=== PATIENT | female | born 1940 | race African-American/Black ===

== ENCOUNTER 2018-01-25 18:32 | Emergency (ER) | payer OTHER ==
[2018-01-25] MEDS ORDERED: NA CHLORIDE 0.9% 500 ML ONE ×2 (20:07→22:20)
[2018-01-25 20:11] LABS: Absolute Lymphocytes (CBC) 0.6 K/uL (0.7-4.9); Absolute Monocytes 0.3 K/uL (0.1-1.3); Absolute Neutrophil 4.4 K/uL (1.8-8.0); Basophils % 1.4 % (0-1.3); Eosinophils % 3.1 % (0-4.4); Hematocrit 33.4 % (36.0-45.0); Lymphocytes % 10.1 % (15.3-44.8); MCH 28.1 pg (27.0-35.0); MCV 84.6 fL (80-100); MPV 10.2 fL (7.6-11.3); Monocytes % 5.5 % (3.3-12.3); RBC Red Blood Cell Count 3.95 M/uL (3.86-4.86)
[2018-01-25 20:24] LABS: Potassium 3.2 mEq/L (3.6-5.0)
[2018-01-25 20:30] LABS: Albumin 3.1 g/dL (3.2-5.5); Bilirubin Direct 0.3 mg/dL (0-0.2); Bilirubin Total 0.9 mg/dL (0.3-1.2); Protein, Total 7.4 g/dL (6.0-8.3)
[2018-01-25 22:09] LABS: Urine Bacteria 20-50 /HPF (<20); Urine Coarse Granular Casts 0-5 /LPF (NONE SEEN); Urine Culture Reflex Order REFLEXED; Urine RBC 20-50 /HPF (NONE SEEN)
[2018-01-25 22:15] LABS: Urine Blood 3+ (NEG); Urine Glucose NEGATIVE (NEG); Urine Protein 2+ (NEG); Urine Specific Gravity 1.015 (1.005-1.030); Urine pH 5.5 (5.0-7.0)
--- NOTE | 2018-01-25 23:23 | ER ---
Nurse's Notes [facility] Name: Елена Tobin Age: 77 yrs Sex: Female : 1940 Arrival Date: 01/25/2018 Time: 18:38 Bed 5 Private MD: None, None Diagnosis: Dehydration Presentation: 01/25 18:48 Presenting complaint: Patient states: Dark tea colored urine for 3 days after stomach aj virus this weekend. Transition of care: patient was not received from another setting of care. Onset of symptoms was January 23, 2018. Risk Assessment: Do you want to hurt yourself or someone else? Patient reports no desire to harm self or others. Care prior to arrival: None. 18:48 Method Of Arrival: Wheelchair aj 18:48 Acuity: BRIGIDA 3 aj 19:46 Initial Sepsis Screen: Does the patient meet any 2 criteria? No. Patient's initial ea sepsis screen is negative. Does the patient have a suspected source of infection? Yes: No. Patient's initial sepsis screen is negative. Triage Assessment: 18:50 General: Appears in no apparent distress. comfortable, Behavior is calm, cooperative, aj appropriate for age. Pain: Denies pain. Neuro: Level of Consciousness is awake, alert, obeys commands, Oriented to person, place, time, situation, Appropriate for age. Respiratory: Airway is patent Respiratory effort is even, unlabored, Respiratory pattern is regular, symmetrical. : Reports decreased urinary output with tea colored urine. Derm: Skin is intact, is healthy with good turgor, Skin is pink, warm \T\ dry. normal. Historical: - Allergies: 18:50 NSAIDS; aj 18:50 amlodipine; aj - PMHx: 18:50 Hypertension; Arthritis; aj - PSHx: 18:50 Knee surgery; aj - Immunization history:: Adult Immunizations up to date. - Social history:: Smoking status: Patient/guardian denies using tobacco. - Ebola Screening: : Patient negative for fever greater than or equal to 101.5 degrees Fahrenheit, and additional compatible Ebola Virus Disease symptoms Patient denies exposure to infectious person Patient denies travel to an Ebola-affected area in the 21 days before illness onset No symptoms or risks identified at this time. Screenin:45 Abuse screen: Denies threats or abuse. Nutritional screening: No deficits noted. ea Tuberculosis screening: No symptoms or risk factors identified. Fall Risk None identified. Assessment: 19:42 General: Appears uncomfortable, Behavior is calm, cooperative, appropriate for age. ea Pain: Complains of pain in abdomen Pain currently is 7 out of 10 on a pain scale. Quality of pain is described as aching. Neuro: Level of Consciousness is awake, alert, obeys commands, Oriented to person, place, time, situation. Cardiovascular: Heart tones S1 S2 present Patient's skin is warm and dry. Respiratory: Airway is patent Respiratory effort is even, unlabored, Respiratory pattern is regular, symmetrical, Breath sounds are clear bilaterally. GI: Reports pt states her abdomen feels achy. : Reports tea colored urine. EENT: No signs and/or symptoms were reported regarding the EENT system. Derm: Skin is dry, Skin is normal, Skin temperature is warm. 20:38 Reassessment: Patient and/or family updated on plan of care and expected duration. Pain ea level reassessed. Patient is alert, oriented x 3, equal unlabored respirations, skin warm/dry/pink. Pending on urine from pt. 21:49 Reassessment: Patient and/or family updated on plan of care and expected duration. Pain ea level reassessed. Patient is alert, oriented x 3, equal unlabored respirations, skin warm/dry/pink. at bedside. 22:39 Reassessment: Patient and/or family updated on plan of care and expected duration. Pain ea level reassessed. Patient is alert, oriented x 3, equal unlabored respirations, skin warm/dry/pink. family remains at bedside. Patient states feeling better. 23:34 Reassessment: Patient and/or family updated on plan of care and expected duration. Pain ea level reassessed. Patient is alert, oriented x 3, equal unlabored respirations, skin warm/dry/pink. Discharge instructions given to patient, verbalized the understanding of instructions. Patient denies pain at this time. Patient states feeling better. Patient states symptoms have improved. Vital Signs: 18:50 BP 136 / 67; Pulse 84; Resp 18; Temp 97.9; Pulse Ox 98% on R/A; Weight 99.79 kg; Height aj 5 ft. 5 in. (165.10 cm); 19:44 BP 140 / 76; Pulse 69; Resp 18; Pulse Ox 100% on R/A; Pain 7/10; ea 20:39 BP 141 / 83; Pulse 70; Resp 18; Pulse Ox 98% ; ea 21:30 BP 157 / 86; Pulse 70; Resp 18; Pulse Ox 99% on R/A; Pain 0/10; ea 22:30 BP 149 / 81; Pulse 63; Resp 18 S; Pulse Ox 98% on R/A; Pain 0/10; ea 23:36 BP 140 / 78; Pulse 70; Resp 18; Temp 97.8; Pulse Ox 99% on R/A; Pain 0/10; ea 18:50 Body Mass Index 36.61 (99.79 kg, 165.10 cm) aj ED Course: 18:38 Patient arrived in ED. sb2 18:38 None, None is Private Physician. sb2 18:49 Triage completed. aj 18:50 Arm band placed on left wrist. Patient placed in waiting room, Patient notified of wait aj time. 19:22 Emy Weems RN is Primary Nurse. ea 19:39 Johny Arellano NP is PHCP. pm1 19:39 Bryan Gutierrez MD is Attending Physician. pm1 19:46 Patient has correct armband on for positive identification. Bed in low position. Call ea light in reach. Side rails up X2. 20:00 Inserted saline lock: 22 gauge in right forearm, using aseptic technique. Blood ea collected. 23:35 No provider procedures requiring assistance completed. IV discontinued, intact, ea bleeding controlled, No redness/swelling at site. Pressure dressing applied. Administered Medications: 20:10 Drug: NS 0.9% 500 ml Route: IV; Rate: bolus; Site: right forearm; ea 21:00 Follow up: Response: No adverse reaction; IV Status: Completed infusion; IV Intake: ea 500ml 21:56 CANCELLED (Physician Discretion): NS 0.9% 1000 ml IV at 1000 ml once pm1 22:20 Drug: NS 0.9% 500 ml Route: IV; Rate: bolus; Site: right forearm; ea 23:00 Follow up: Response: No adverse reaction; IV Status: Completed infusion; IV Intake: ea 500ml 23:25 Drug: Potassium Chloride 20 mEq Route: PO; ea 23:37 Follow up: Response: Medication administered at discharge. ea Intake: 21:00 IV: 500ml; Total: 500ml. ea 23:00 IV: 500ml; Total: 1000ml. ea Outcome: 23:23 Discharge ordered by . pm1 23:35 Discharged to home via wheelchair, with family. ea 23:35 Condition: improved 23:35 Discharge instructions given to patient, Instructed on discharge instructions, follow up and referral plans. 23:35 Demonstrated understanding of instructions, follow-up care. 23:38 Patient left the ED. ea Addendum: 01/30/2018 18:48 Addendum: Culture Results: Positive urine culture. Patient was not prescribed i w antibiotics at discharge. Report given to ROXANA for further evaluation and then to webbing tacker for follow up with patient. Phone call Attempt #1 pt did not answer phone, left voice mail. Signatures: Nora Conroy RN Keyla Andrews RN RN iw Marinas, Patrick, NP TITLE I MATH TUTOR pm1 Emy Weems RN RN ea Billeau, Sheri sb2
--- NOTE | 2018-01-25 23:23 | EDPHYS ---
Physician Documentation [facility] Name: Елена Tobin Age: 77 yrs Sex: Female : 1940 Arrival Date: 01/25/2018 Time: 18:38 Bed 5 Private MD: None, None ED Physician Bryan Gutierrez HPI: 01/25 20:00 This 77 yrs old Black Female presents to ER via Wheelchair with complaints of STOMACH pm1 VIRUS, DARK URINE. 20:00 The patient presents with dark urine. Onset: The symptoms/episode began/occurred today. pm1 Modifying factors: The symptoms are alleviated by nothing, the symptoms are aggravated by nothing. Associated signs and symptoms: Pertinent negatives: diarrhea, nausea, urinary frequency, vomiting, Pain with urination. Abdominal pain. Flank pain. patient with diarrhea for 2 days. approximately 5 episodes each day. No diarrhea today. Patient reports concentrated urine today after getting over a stomach virus the previous day. Historical: - Allergies: 18:50 NSAIDS; aj 18:50 amlodipine; aj - PMHx: 18:50 Hypertension; Arthritis; aj - PSHx: 18:50 Knee surgery; aj - Immunization history:: Adult Immunizations up to date. - Social history:: Smoking status: Patient/guardian denies using tobacco. - Ebola Screening: : Patient negative for fever greater than or equal to 101.5 degrees Fahrenheit, and additional compatible Ebola Virus Disease symptoms Patient denies exposure to infectious person Patient denies travel to an Ebola-affected area in the 21 days before illness onset No symptoms or risks identified at this time. ROS: 20:00 Positive for concentrated urine, Negative for urinary frequency, flank pain, burning pm1 with urination, difficulty urinating. 20:00 Constitutional: Negative for fever, chills, and weight loss, Eyes: Negative for injury, pain, redness, and discharge, ENT: Negative for injury, pain, and discharge, Neck: Negative for injury, pain, and swelling, Cardiovascular: Negative for chest pain, palpitations, and edema, Respiratory: Negative for shortness of breath, cough, wheezing, and pleuritic chest pain, Abdomen/GI: Negative for abdominal pain, nausea, vomiting, diarrhea, and constipation, Back: Negative for injury and pain, MS/Extremity: Negative for injury and deformity, Skin: Negative for injury, rash, and discoloration, Neuro: Negative for headache, weakness, numbness, tingling, and seizure. Exam: 20:00 Constitutional: This is a well developed, well nourished patient who is awake, alert, pm1 and in no acute distress. Head/Face: Normocephalic, atraumatic. Eyes: Pupils equal round and reactive to light, extra-ocular motions intact. Lids and lashes normal. Conjunctiva and sclera are non-icteric and not injected. Cornea within normal limits. Periorbital areas with no swelling, redness, or edema. Neck: Trachea midline, no thyromegaly or masses palpated, and no cervical lymphadenopathy. Supple, full range of motion without nuchal rigidity, or vertebral point tenderness. No Meningismus. Chest/axilla: Normal chest wall appearance and motion. Nontender with no deformity. No lesions are appreciated. Cardiovascular: Regular rate and rhythm with a normal S1 and S2. No gallops, murmurs, or rubs. Normal PMI, no JVD. No pulse deficits. Respiratory: Lungs have equal breath sounds bilaterally, clear to auscultation and percussion. No rales, rhonchi or wheezes noted. No increased work of breathing, no retractions or nasal flaring. 20:00 Back: No spinal tenderness. No costovertebral tenderness. Full range of motion. Skin: Warm, dry with normal turgor. Normal color with no rashes, no lesions, and no evidence of cellulitis. MS/ Extremity: Pulses equal, no cyanosis. Neurovascular intact. Full, normal range of motion. 20:00 Abdomen/GI: Inspection: abdomen appears normal, Bowel sounds: normal, Palpation: abdomen is soft and non-tender, in all quadrants. 20:00 Neuro: Orientation: is normal, Motor: is normal, moves all fours, strength is normal. Vital Signs: 18:50 BP 136 / 67; Pulse 84; Resp 18; Temp 97.9; Pulse Ox 98% on R/A; Weight 99.79 kg; Height aj 5 ft. 5 in. (165.10 cm); 19:44 BP 140 / 76; Pulse 69; Resp 18; Pulse Ox 100% on R/A; Pain 7/10; ea 20:39 BP 141 / 83; Pulse 70; Resp 18; Pulse Ox 98% ; ea 21:30 BP 157 / 86; Pulse 70; Resp 18; Pulse Ox 99% on R/A; Pain 0/10; ea 22:30 BP 149 / 81; Pulse 63; Resp 18 S; Pulse Ox 98% on R/A; Pain 0/10; ea 23:36 BP 140 / 78; Pulse 70; Resp 18; Temp 97.8; Pulse Ox 99% on R/A; Pain 0/10; ea 18:50 Body Mass Index 36.61 (99.79 kg, 165.10 cm) aj MDM: 19:45 Patient medically screened. pm1 23:20 ED course: Patient feels better after IV fluids and wants to go home.. pm1 23:22 Data reviewed: vital signs. Data interpreted: Pulse oximetry: on room air is 98 %. pm1 Interpretation: normal. 23:22 Counseling: I had a detailed discussion with the patient and/or guardian regarding: the pm1 historical points, exam findings, and any diagnostic results supporting the discharge/admit diagnosis, lab results, the need for outpatient follow up, to return to the emergency department if symptoms worsen or persist or if there are any questions or concerns that arise at home. 23:24 ED course: Patient without any pain with urination or frequency. No flank or abdominal pm1 pain. Urine microscopy with squamous epithelial cells. 01/25 19:45 Order name: Creatinine for Radiology; Complete Time: 21:55 pm1 01/25 19:45 Order name: Basic Metabolic Panel; Complete Time: 21:55 pm1 01/25 19:45 Order name: CBC with Diff; Complete Time: 21:55 pm1 01/25 19:45 Order name: Hepatic Function; Complete Time: 21:55 pm1 01/25 19:45 Order name: Lipase; Complete Time: 21:55 pm1 01/25 19:45 Order name: Urine Microscopic Only; Complete Time: 22:11 pm1 01/25 19:45 Order name: IV Saline Lock; Complete Time: 20:09 pm01/25 19:45 Order name: Labs collected and sent; Complete Time: 20:09 pm01/25 21:45 Order name: Urine Dipstick--Ancillary (enter results); Complete Time: 23:18 rg2 01/25 22:11 Order name: Urine Culture [facility] 01/25 19:45 Order name: Urine Dipstick-Ancillary (obtain specimen); Complete Time: 21:38 pm1 Administered Medications: 20:10 Drug: NS 0.9% 500 ml Route: IV; Rate: bolus; Site: right forearm; ea 21:00 Follow up: Response: No adverse reaction; IV Status: Completed infusion; IV Intake: ea 500ml 21:56 CANCELLED (Physician Discretion): NS 0.9% 1000 ml IV at 1000 ml once pm1 22:20 Drug: NS 0.9% 500 ml Route: IV; Rate: bolus; Site: right forearm; ea 23:00 Follow up: Response: No adverse reaction; IV Status: Completed infusion; IV Intake: ea 500ml 23:25 Drug: Potassium Chloride 20 mEq Route: PO; ea 23:37 Follow up: Response: Medication administered at discharge. ea Disposition: 01/25/18 23:23 Discharged to Home. Impression: Dehydration. - Condition is Stable. - Discharge Instructions: Dehydration, Elderly, Rehydration, Elderly. - Medication Reconciliation Form, Thank You Letter, Antibiotic Education form. - Follow up: Emergency Department; When: As needed; Reason: Worsening of condition. Follow up: Private Physician; When: 2 - 3 days; Reason: Recheck today's complaints, Continuance of care, Re-evaluation by your physician. - Problem is new. - Symptoms have improved. Addendum: 01/27/2018 12:07 Co-signature as Attending Physician, Bryan Gutierrez MD. g s Signatures: Dispatcher [employer] EDMS Nora Conroy RN RN aj Marinas, Patrick, CLINICAL APPLICATIONS SPECIALIST CLINICAL APPLICATIONS SPECIALIST pm1 Emy Weems RN RN ea Starr, Gregory, MD MD gs Corrections: (The following items were deleted from the chart) 01/25 21:56 21:56 NS 0.9% 1000 ml IV at 1000 ml once ordered. pm1 pm1 23:38 23:23 01/25/2018 23:23 Discharged to Home. Impression: Dehydration. Condition is ea Stable. Forms are Medication Reconciliation Form, Thank You Letter, Antibiotic Education, Prescription Opioid Use. Follow up: Emergency Department; When: As needed; Reason: Worsening of condition. Follow up: Private Physician; When: 2 - 3 days; Reason: Recheck today's complaints, Continuance of care, Re-evaluation by your physician. Problem is new. Symptoms have improved. pm1
[2018-01-25] MEDS ORDERED: POTASSIUM CL SA 10 MEQ TAB PO ONE (23:24)
[2018-01-25 23:54] VITALS: BP 140/78; TEMP 97.8; O2SAT 99
== END 2018-01-25 23:38 | disposition home or self-care (01) ==
LOC: ER 18:32
DX: E86.0 Dehydration (principal); I10 Essential (primary) hypertension; M19.90 Unspecified osteoarthritis, unspecified site
CPT/HCPCS: 36415; 80048; 80076; 81003; 81015; 83690; 85025; 87077; 87086; 87088; 87186; 96360; 99284

== ENCOUNTER 2019-09-14 17:48 | Emergency (ER) | payer MEDICARE ==
--- OUTSIDE RECORDS SUMMARY | 2019-09-14 17:50 | XMS REPORT | Summary of Care ---
:1940 Author Organization [facility] - Health Address [address] [place] [address] Care Team Providers Name Role Phone Montse Trivedi MD Primary Care Provider Encounter Details Date Type Department Care Team Description 04/25/2019 Orders Only [facility] Doctor Unassigned, No [address] [facility] [place] [address] [address] [place] [address] Allergies Active Allergy Reactions Severity Noted Date Comments Lisinopril Swelling 09/08/2018 Nsaids (Non-Steroidal Anti-Inflammatory Anaphylaxis High 10/21/2016 Drug) documented as of this encounter (statuses as of 04/25/2019) Medications Medication Sig Dispensed Refills Start Date End Date Status vitamin B-12 1,000 mcg Take 1 tablet 0 11/30/2018 Active tabletIndications: B12 by mouth daily. deficiency metoprolol succinate XL Take 1 tablet 90 tablet 1 02/03/2019 Active 25 mg 24 hr by mouth daily. tabletIndications: Essential hypertension apixaban (ELIQUIS) 2.5 Take 1 tablet 180 tablet 1 02/13/2019 Active mg tabletIndications: by mouth 2 Chronic anticoagulation (two) times daily. hydrALAZINE 50 mg Take 1 tablet 60 tablet 5 04/14/2019 Active tabletIndications: by mouth 2 Uncontrolled (two) times hypertension daily. documented as of this encounter (statuses as of 04/25/2019) Active Problems Problem Noted Date Leukopenia 11/30/2018 Acute on chronic renal insufficiency 11/30/2018 CKD (chronic kidney disease), stage III 11/30/2018 B12 deficiency 11/30/2018 Bilateral chronic knee pain 11/07/2018 Chronic anemia 11/07/2018 Osteoarthritis, knee 2018 Chronic anticoagulation 2018 Osteoporosis 2018 Obesity (BMI 30-39.9) 10/21/2016 History of pulmonary embolism 10/20/2016 Hypertension documented as of this encounter (statuses as of 04/25/2019) Social History Tobacco Use Types Packs/Day Years Used Date Never Smoker Smokeless Tobacco: Never Used Alcohol Use Drinks/Week oz/Week Comments No Sex Assigned at Date Recorded Not on file Job Start Date Occupation Industry Not on file Not on file Not on file Travel History Travel Start Travel End No recent travel history available. documented as of this encounter Last Filed Vital Signs Not on filedocumented in this encounter Plan of Treatment Date Type Specialty Care Team Description 04/25/2019 Appointment Vascular Sonography Akila Prabhakar MD [address] [place] [id number] [phone] [facility] 04/25/2019 Appointment Vascular Sonography Akila Prabhakar MD [address] [place] [address] [phone] [employer] 05/11/2019 Office Visit Family Medicine Montse Trivedi MD [address] [place] [id number] [phone] Health Maintenance Due Date Last Done Comments DTaP,Tdap,and Td Vaccines (1 - Tdap) 1960 Zoster Recombinant Vaccine (SHINGRIX) (1 of 2) 1991 Medicare Wellness Visit 2006 Osteoporosis Screening 2006 PNEUMOCOCCAL VACCINES 65+ (1 of 2 - PCV13) 2006 INFLUENZA VACCINE (#1) 2019 documented as of this encounter Procedures Procedure Name Priority Date/Time Associated Diagnosis Comments NO SHOW OR MISSED Routine 04/25/2019 1:05 PM APPOINTMENT POLICY CDT ACKNOWLEDGEMENT documented in this encounter Results Not on filedocumented in this encounter Insurance Payer Benefit Plan / Subscriber ID Effective Phone Address Type Group Dates [place] [employer] MEDICARE [id number] 2018-Prese Medicare Adv HEALTHCARE - COMPLETE nt [facility] MED[facility] documented as of this encounter
--- OUTSIDE RECORDS SUMMARY | 2019-09-14 17:50 | XMS REPORT ---
:1940 Author Organization [facility] Address [address] [place] [address] Dr. Hayes [address] [place] [id number] Care Team Providers Name Role Phone Unavailable Unavailable Unavailable Problems This patient has no known problems. Allergies, Adverse Reactions, Alerts This patient has no known allergies or adverse reactions. Medications This patient has no known medications.
--- OUTSIDE RECORDS SUMMARY | 2019-09-14 17:50 | XMS REPORT | Summary of Care ---
:1940 Author Organization [facility] Address [address] [place] [address] Care Team Providers Name Role Phone Montse Trivedi MD Primary Care Provider Reason for Referral (TIFFANIE) Status Reason Specialty Diagnoses / Referred By Referred To Procedures Contact Contact Pending Review Vascular Diagnoses Bilateral leg edema Decreased pedal pulses Shikha Sonography Procedures BILATERAL DUPLEX SCAN OF ARTERY BY VASCULAR LAB Montse Cornejo MD [address] [place] [address] [place] [address] (TIFFANIE) Status Reason Specialty Diagnoses / Referred By Referred To Procedures Contact Contact Pending Review Vascular Diagnoses Bilateral leg edema Decreased pedal pulses Rubin Trivedi, Sonography Procedures BILATERAL VENOUS DUPLEX LOWER EXTREMITY BY VASCULAR LAB MD Glendy Mariscal MD [address] [place] [phone] Phone: Fax: Reason for Visit Reason Comments Hypertension SWELLING feet swelling Encounter Details Date Type Department Care Team Description 04/14/2019 Office Visit [facility] Family Montse Trivedi Uncontrolled hypertension (Primary Dx); Medicine - Ari Cornejo MD Bilateral leg edema; [address] [place] [address] [address] [place] [address] Decreased [place] [phone] Allergies Active Allergy Reactions Severity Noted Date Comments Lisinopril Swelling 09/08/2018 Nsaids (Non-Steroidal Anti-Inflammatory Anaphylaxis High 10/21/2016 Drug) documented as of this encounter (statuses as of 04/24/2019) Medications Medication Sig Dispensed Refills Start Date End Date Status vitamin B-12 1,000 Take 1 0 11/30/2018 Active mcg tablet by tabletIndications: mouth daily. B12 deficiency metoprolol succinate Take 1 90 tablet 1 02/03/2019 Active XL 25 mg 24 hr tablet by tabletIndications: mouth daily. Essential hypertension apixaban (ELIQUIS) Take 1 180 tablet 1 02/13/2019 Active 2.5 mg tablet by tabletIndications: mouth 2 Chronic (two) times anticoagulation daily. hydrALAZINE 50 mg Take 1 60 tablet 5 04/14/2019 Active tabletIndications: tablet by Uncontrolled mouth 2 hypertension (two) times daily. felodipine 10 mg 24 Take 1 90 tablet 1 02/03/2019 Discontinued hr tabletIndications: tablet by 9 Essential mouth daily. hypertension DOSE INCREASE. documented as of this encounter (statuses as of 04/24/2019) Active Problems Problem Noted Date Leukopenia 11/30/2018 Acute on chronic renal insufficiency 11/30/2018 CKD (chronic kidney disease), stage III 11/30/2018 B12 deficiency 11/30/2018 Bilateral chronic knee pain 11/07/2018 Chronic anemia 11/07/2018 Osteoarthritis, knee 2018 Chronic anticoagulation 2018 Osteoporosis 2018 Obesity (BMI 30-39.9) 10/21/2016 History of pulmonary embolism 10/20/2016 Hypertension documented as of this encounter (statuses as of 04/24/2019) Social History Tobacco Use Types Packs/Day Years Used Date Never Smoker Smokeless Tobacco: Never Used Alcohol Use Drinks/Week oz/Week Comments No Sex Assigned at Date Recorded Not on file Job Start Date Occupation Industry Not on file Not on file Not on file Travel History Travel Start Travel End No recent travel history available. documented as of this encounter Last Filed Vital Signs Vital Sign Reading Time Taken Comments Blood Pressure 196/104 04/14/2019 2:21 PM CDT Pulse 73 04/14/2019 2:21 PM CDT Temperature 36.4 C (97.6 F) 04/14/2019 1:42 PM CDT Respiratory Rate - - Oxygen Saturation - - Inhaled Oxygen Concentration - - Weight 99.8 kg (220 lb) 04/14/2019 1:42 PM CDT Height 165.1 cm (5' 5") 04/14/2019 1:42 PM CDT Body Mass Index 36.61 04/14/2019 1:42 PM CDT documented in this encounter Patient Instructions Patient InstructionsMontse Trivedi MD - 04/14/2019 1:30 PM CDT Leg Swelling in Both Legs Swelling of the feet, ankles, and legs is called edema. It is caused by excess fluid that has collected in the tissues. Extra fluid in the body settles in the lowest part because of gravity. This is why the legs and feet are most affected. Some of the causes for edema include: Disease of the heart like congestive heart failure Standing or sitting for long periods of time Infection of the feet or legs Blood pooling in the veins of your legs (venous insufficiency) Dilated veins in your lower leg (varicose veins) Garters or other clothing that is tight on your legs. This will cause blood to pool in your legs because the clothing limits blood flow. Some medicines such as hormones like control pills, some blood pressure medicines like calcium channel blockers (amlodipine) and steroids, some antidepressants like MAO inhibitors and tricyclics Menstrual periods that cause you to retain fluids Many types of renal disease Liver failureor cirrhosis , some swelling is normal, but a sudden increase in leg swelling or weight gain can be asign of a dangerous complication of Poor nutrition Thyroid disease Medical treatment will depend on what is causing the swelling in your legs. Your healthcare providermay prescribe water pills (diuretics) to get rid of the extra fluid. Home care Follow these guidelines when caring for yourself at home: Don't wear clothing like garters that is tight on your legs. Keep your legs up while lying or sitting. If infection, injury, or recent surgery is causing the swelling, stay off your legs as much as possible until symptoms get better. If your healthcare provider says that your leg swelling is caused by venous insufficiency or varicose veins, don't sit or blind stitch machine operator one place for long periods of time. Take breaks and walk about every few hours. Brisk walking is a good exercise. It helps circulate the blood that has collected in your leg. Talk with your provider about using support stockings to stop daytime leg swelling. If your provider says that heart disease is causing your leg swelling, follow a low-salt diet to stop extra fluid from staying in your body. You may also need medicine. Follow-up care Follow up with your healthcare provider, or as advised. When to seek medical advice Call your healthcare provider right away if any of these occur: New shortness of breath or chest pain Shortness of breath or chest pain that gets worse Swelling in both legs or ankles that gets worse Swelling of the abdomen Redness, warmth, or swelling in one leg Fever of 100.4F (38C) or higher, or as directed by your healthcare provider Yellow color to your skin or eyes Rapid, unexplained weight gain Having to sleep upright or use an increased number of pillows Date Last Reviewed: 11/21/201519990372-8506 [employer]. [address] [place] [address]. All rights reserved. This information is not intended as a substitute for professional medical care. Always follow your healthcare professional's instructions. documented in this encounter Progress Notes Montse Trivedi MD - 04/14/2019 1:30 PM CDT Cc: Chief Complaint Patient presents with Hypertension SWELLING feet swelling HPI Елена Tobin is a 78 year old female who presents today for HTN follow-up. She also is c/o swelling of her feet/legs. HTN follow-up: Medication compliance: Stopped taking her felodipine due to it causing her to have BLE edema. Her edema has improved since she stopped the felodipine but it hasn't resolved. Dietary compliance: Good. Exercise frequency: None due to chronic b/l knee pain/arthritis. Blood pressure readings: Doesn't self-monitor. Associated symptoms: BLE edema. Denies cp or SOB. Cardiovascular screening (ex. EKG, stress test) in the past 3 years?: Yes, 2016. Allergies Елена is allergic to nsaids (non-steroidal anti-inflammatory drug) and lisinopril. Medications Outpatient Medications Prior to Visit Medication Sig Dispense Refill apixaban (ELIQUIS) 2.5 mg tablet Take 1 tablet by mouth 2 (two) times daily. 180 tablet 1 metoprolol succinate XL 25 mg 24 hr tablet Take 1 tablet by mouth daily. 90 tablet 1 felodipine 10 mg 24 hr tablet Take 1 tablet by mouth daily. DOSE INCREASE. 90 tablet 1 vitamin B-12 1,000 mcg tablet Take 1 tablet by mouth daily. No facility-administered medications prior to visit. Histories Past Medical History: Diagnosis Date B12 deficiency 11/30/2018 Chronic anemia 11/07/2018 Chronic anticoagulation 2018 CKD (chronic kidney disease), stage III 11/30/2018 History of DVT (deep vein thrombosis) 2018 History of pulmonary embolism 2017 History of urinary tract infection Hypertension Leukopenia 11/30/2018 Osteoarthritis, knee 2018 Osteoporosis 2018 Past Surgical History: Procedure Laterality Date COLONOSCOPY N/A 10/26/2016 Surgeon: Juan A Cochran MD; Location: [facility] Location ESOPHAGOGASTRODUODENOSCOPY N/A 10/23/2016 Surgeon: Javon Lofton MD; Location: [facility] Location INFERIOR VENA CAVA FILTER PLACEMENT TOTAL KNEE ARTHROPLASTY Right Social History Socioeconomic History Marital status: Spouse name: Not on file Number of children: Not on file Years of education: Not on file Highest education level: Not on file Occupational History Not on file Social Needs Financial resource strain: Not on file Food insecurity: Worry: Not on file Inability: Not on file Transportation needs: Medical: Not on file Non-medical: Not on file Tobacco Use Smoking status: Never Smoker Smokeless tobacco: Never Used Substance and Sexual Activity Alcohol use: No Drug use: No Sexual activity: Not on file Lifestyle Physical activity: Days per week: Not on file Minutes per session: Not on file Stress: Not on file Relationships Social connections: Talks on phone: Not on file Gets together: Not on file Attends alevism service: Not on file Active member of club or organization: Not on file Attends meetings of clubs or organizations: Not on file Relationship status: Not on file Intimate partner violence: Fear of current or ex partner: Not on file Emotionally abused: Not on file Physically abused: Not on file Forced sexual activity: Not on file Other Topics Concern Not on file Social History Narrative Single. Retired. Family History Problem Relation Age of Onset Stroke Mother Hypertension Mother Review of Systems Constitutional: Negative. HENT: Negative. Eyes: Negative. Respiratory: Negative. Cardiovascular: Positive for leg swelling. Gastrointestinal: Negative. Genitourinary: Negative. Musculoskeletal: Positive for arthralgias and gait problem. Skin: Negative. Psychiatric/Behavioral: Negative. Endocrine: Endocrine negative Vital Signs BP (!) 196/104 (BP Location: Left arm, Patient Position: Sitting, BP CUFF SIZE: Adult Large) | Pulse 73 | Temp 36.4 C (97.6 F) (Tympanic) | Ht 5' 5" ( 1.651 m) | Wt 220 lb (99.8 kg) | BMI 36.61kg/m Physical Exam Constitutional: She is oriented to person, place, and time. She appears well- developed and well-nourished. No distress. HENT: Head: Normocephalic. Mouth/Throat: Mucous membranes are normal. Eyes: Pupils are equal, round, and reactive to light. Conjunctivae and EOM are normal. No scleral icterus. Neck: Neck supple. No JVD present. No thyromegaly present. Cardiovascular: Normal rate, regular rhythm, normal heart sounds and intact distal pulses. Exam reveals no gallop and no friction rub. No murmur heard. Pulses: Dorsalis pedis pulses are 1+ on the right side, and 1+ on the left side. Posterior tibial pulses are 1+ on the right side, and 1+ on the left side. Pulmonary/Chest: Effort normal and breath sounds normal. She has no wheezes. She has no rales. Musculoskeletal: She exhibits edema (1+ R ankle, Trace L ankle). Lymphadenopathy: She has no cervical adenopathy. Neurological: She is alert and oriented to person, place, and time. She has normal reflexes. Skin: Skin is warm and dry. No rash noted. No pallor. Psychiatric: She has a normal mood and affect. Her behavior is normal. Nursing note and vitals reviewed. Assessment/Plan Елена was seen today for hypertension and swelling. Diagnoses and all orders for this visit: Uncontrolled hypertension The patient's blood pressure is uncontrolled. Continue metoprolol. She can't tolerate felodipine due to edema so I recommended hydralazine instead. The potential side effects of the medication were reviewed with the patient who voiced understanding. The low sodium DASH diet was reviewed with the patient and patient education materials were provided in printed form. The patient was counseled to exercise regularly with a goal of 150 mins per week. The patient was instructed to self monitor her blood pressure once daily varying the times when it is checked and to bring the record of readings to each office visit. The patient should follow-up sooner if the blood pressure is trending >/=150/ 90. Baseline EKG is UTD. Close follow-up recommended. - hydrALAZINE 50 mg tablet; Take 1 tablet by mouth 2 (two) times daily. Bilateral leg edema, Decreased pedal pulses Recommended vascular testing as noted. - BILATERAL VENOUS DUPLEX LOWER EXTREMITY BY VASCULAR LAB; Future - BILATERAL DUPLEX SCAN OF ARTERY BY VASCULAR LAB; Future Plan of care, desired health behaviors, goals, Ddx, and any prescribed medications were discussed with the patient. This visit did not involve counseling and coordination that comprised more than 50% of the visit time. Education resources and self-management tools were provided and reviewed with the AVS. Patient/guardian/family verbalized understanding and agrees to the plan of care. Barriers tocare: None. Ability to manage care: Good. Advanced care planning (living will) information was not given/offered to the patient to review for discussion at a future visit. If applicable, the [facility] database was accessed to review any controlled substance prescription claims data. If the patient is taking prescribed medications, the [employer] prescription claims data in [employer] was reviewed to assess patient compliance with the medication treatment plan. Follow-up: Return in about 1 month (around 05/15/2019) for hypertension and swelling follow-up. Follow-up sooner if any problems or concerns. Scribe Attestation Fidelia Ramos , am scribing for, and in the presence of, Montse Trivedi MD who performed the services described here-in. Fidelia Escalona, April 14, 2019, 2:06 PM Physician Attestation Montse Ramos MD, personally performed the services described in this documentation , as scribed by, Fidelia Escalona in my presence and it is both accurate and complete. Montse Trivedi MD April 14, 2019, 2:06 PM documented in this encounter Plan of Treatment Date Type Specialty Care Team Description 04/25/2019 Appointment Vascular Sonography Akila Prabhakar MD [address] [facility] [address] [place], [place] [phone] Omid Mazariegos Cardio Vascular 04/25/2019 Appointment Vascular Sonography Omid Mazariegos Cardio Vascular 05/11/2019 Office Visit Family Medicine Montse Trivedi MD [address] [place] [address] [place] [phone] Health Maintenance Due Date Last Done Comments DTaP,Tdap,and Td Vaccines (1 - Tdap) 1960 Zoster Recombinant Vaccine (SHINGRIX) (1 of 2) 1991 Medicare Wellness Visit 2006 Osteoporosis Screening 2006 PNEUMOCOCCAL VACCINES 65+ (1 of 2 - PCV13) 2006 INFLUENZA VACCINE (#1) 2019 documented as of this encounter Results Not on filedocumented in this encounter Visit Diagnoses Diagnosis Uncontrolled hypertension - Primary Unspecified essential hypertension Bilateral leg edema Edema Decreased pedal pulses Other symptoms involving cardiovascular system documented in this encounter Insurance Payer Benefit Plan / Subscriber ID Effective Phone Address Type Group Dates [employer] AARP MEDICARE [id number] 2018-Prese Medicare Adv HEALTHCARE - COMPLETE nt O MANAGED MEDICARE documented as of this encounter
--- OUTSIDE RECORDS SUMMARY | 2019-09-14 17:50 | XMS REPORT | Summary of Care ---
:1940 Author Organization [facility] Address [address] [place] [address] Care Team Providers Name Role Phone Montse Trivedi MD Primary Care Provider Reason for Referral (TIFFANIE) Status Reason Specialty Diagnoses / Referred By Referred To Procedures Contact Contact Pending Review Vascular Diagnoses Bilateral leg edema Decreased pedal pulses Shikha Sonography Procedures BILATERAL DUPLEX SCAN OF ARTERY BY VASCULAR LAB Montse Cornejo MD [address] [place] [address] [place] [address] (TIFFANIE) Status Reason Specialty Diagnoses / Referred By Referred To Procedures Contact Contact Pending Review Vascular Diagnoses Bilateral leg edema Decreased pedal pulses Rubin Trivedi, Sonography Procedures BILATERAL VENOUS DUPLEX LOWER EXTREMITY BY VASCULAR LAB MD Glendy Mariscal MD [address] [place] [phone] Phone: Fax: Reason for Visit Reason Comments Hypertension SWELLING feet swelling Encounter Details Date Type Department Care Team Description 04/14/2019 Office Visit [facility] Family Montse Trivedi Uncontrolled hypertension (Primary Dx); Medicine - Ari Cornejo MD Bilateral leg edema; [address] [place] [address] [place] [address] [place] [phone] Allergies Active Allergy Reactions [...] insufficiency or varicose veins, don't sit or clinic scheduler one place for long periods of time. [...] increased number of pillows Date Last Reviewed: 11/21/201519999563-1628 [employer] [address] [place] [address]. All rights reserved. This information is not [...] file Gets together: Not on file Attends cheondoism service: Not on file Active member of [...] at a future visit. If applicable, the [facility] database was accessed to review any controlled substance prescription claims data. If the patient is taking prescribed medications, the [employer] prescription claims data in [employer] was reviewed to assess patient compliance with [...] Appointment Vascular Sonography Akila Prabhakar MD [address] [facility] [address] [place], [place] [phone] Omid Mazariegos Cardio Vascular 04/25/2019 Appointment Vascular Sonography Omid Mazariegos Cardio Vascular 05/11/2019 Office Visit Family Medicine Montse Trivedi MD [address] [place] [address] [place] [phone] Health Maintenance Due Date Last Done [...] Address Type Group Dates [employer] MEDICARE [id number] 2018-Prese Medicare Adv HEALTHCARE - COMPLETE nt O MANAGED MEDICARE documented as of this encounter
--- OUTSIDE RECORDS SUMMARY | 2019-09-14 17:51 | XMS REPORT | Summary of Care ---
:1940 Author Organization [facility] Address [address] [place] [address] Care Team Providers Name Role Phone Montse Trivedi MD Primary Care Provider Reason for Referral (TIFFANIE) Status Reason Specialty Diagnoses / Referred By Referred To Procedures Contact Contact Closed Vascular Sonography Diagnoses Bilateral leg edema Decreased pedal pulses Rubin Trivedi Jennifer, Procedures BILATERAL VENOUS DUPLEX LOWER EXTREMITY BY VASCULAR LAB Montse Cornejo MD MD [address] [place] [phone] Phone: Fax: (TIFFANIE) Status Reason Specialty Diagnoses / Referred By Referred To Procedures Contact Contact Closed Vascular Sonography Diagnoses Bilateral leg edema Decreased pedal pulses Rubin Trivedi Jennifer, Procedures BILATERAL VENOUS DUPLEX LOWER EXTREMITY BY VASCULAR LAB Montse Cornejo MD MD [address] [place] [phone] Phone: Fax: (TIFFANIE) Status Reason Specialty Diagnoses / Referred By Referred To Procedures Contact Contact Closed Vascular Sonography Diagnoses Bilateral leg edema Decreased pedal pulses Montse Trivedi Procedures BILATERAL DUPLEX SCAN OF ARTERY BY VASCULAR LAB MD Clemente [address] [place] [phone] (TIFFANIE) Status Reason Specialty Diagnoses / Referred By Referred To Procedures Contact Contact Closed Vascular Sonography Diagnoses Bilateral leg edema Decreased pedal pulses Montse Trivedi Procedures BILATERAL DUPLEX SCAN OF ARTERY BY VASCULAR LAB MD [place] [address] [place] [address] [place] [phone] Reason for Visit Reason Comments Edema (TIFFANIE) Status Reason Specialty Diagnoses / Referred By Referred To Procedures Contact Contact Closed Vascular Sonography Diagnoses Bilateral leg edema Decreased pedal pulses Rubin Trivedi Jennifer, Procedures BILATERAL VENOUS DUPLEX LOWER EXTREMITY BY VASCULAR LAB Montse Cornejo MD MD [address] [place] [address] [place] [phone] Phone: Fax: Encounter Details Date Type Department Care Team Description 04/25/2019 Hospital Encounter [facility] Akila Prabhakar MD [address] [facility] [address] [place] [address] [facility] Cardio Vascular [address] [place] [phone] Allergies Active Allergy Reactions Severity Noted Date Comments Lisinopril Swelling 09/08/2018 Nsaids (Non-Steroidal Anti-Inflammatory Anaphylaxis High 10/21/2016 Drug) documented as of this encounter (statuses as of 04/26/2019) Medications Medication Sig Dispensed Refills Start Date [...] as of this encounter (statuses as of 04/26/2019) Active Problems Problem Noted Date Leukopenia 11/30/2018 Acute on chronic renal insufficiency 11/30/2018 CKD (chronic kidney disease), stage III 11/30/2018 B12 deficiency 11/30/2018 Bilateral chronic knee pain 11/07/2018 Chronic anemia 11/07/2018 Osteoarthritis, knee 2018 Chronic anticoagulation 2018 Osteoporosis 2018 Obesity (BMI 30-39.9) 10/21/2016 History of pulmonary embolism 10/20/2016 Hypertension documented as of this encounter (statuses as of 04/26/2019) Social History Tobacco Use Types Packs/Day Years [...] Treatment Date Type Specialty Care Team Description 05/11/2019 Office Visit Family Medicine Montse Trivedi MD [address] [place] [address] [place] [phone] Health Maintenance Due Date Last Done Comments DTaP,Tdap,and Td Vaccines (1 - Tdap) 1960 Zoster Recombinant Vaccine (SHINGRIX) (1 of 2) 1991 Medicare Wellness Visit 2006 Osteoporosis Screening 2006 PNEUMOCOCCAL VACCINES 65+ (1 of 2 - PCV13) 2006 INFLUENZA VACCINE (#1) 2019 documented as of this encounter Procedures Procedure Name Priority Date/Time Associated Diagnosis Comments BILATERAL VENOUS TIFFANIE 04/25/2019 2:37 PM Bilateral leg edema DUPLEX LOWER EXTREMITY CDT Decreased pedal pulses BY VASCULAR LAB BILATERAL DUPLEX SCAN TIFFANIE 04/25/2019 1:45 PM Bilateral leg edema OF ARTERY BY VASCULAR CDT Decreased pedal pulses LAB documented in this encounter Results Not on filedocumented in this encounter Visit Diagnoses Diagnosis Bilateral leg edema Edema Decreased pedal pulses Other symptoms involving cardiovascular system documented in this encounter Insurance Payer Benefit Plan / Subscriber ID Effective Phone Address Type Group Dates [employer] MEDICARE [id number] 2018-Prese Medicare Adv HEALTHCARE - COMPLETE nt O MANAGED MEDICARE documented as of this encounter
--- OUTSIDE RECORDS SUMMARY | 2019-09-14 17:51 | XMS REPORT | Summary of Care ---
:1940 Author Organization [facility] Address [address] [place] [id number] Care Team Providers Name Role Phone Montse Trivedi MD Primary Care Provider Reason for Visit Reason Comments Edema (TIFFAINE) Status Reason Specialty Diagnoses / Referred By Referred To Procedures Contact Contact Closed Vascular Sonography Diagnoses Bilateral leg edema Decreased pedal pulses Montse Trivedi Procedures BILATERAL DUPLEX SCAN OF ARTERY BY VASCULAR LAB MD Clemente [address] [place] [address] [facility] [place] [address] Encounter Details Date Type Department Care Team Description 04/25/2019 Hospital Encounter [facility] Akila Prabhakar MD [address] [facility] [address] [place] [address] [facility], [facility] Cardio Vascular [address] [facility] [place] [address] Allergies Active Allergy Reactions Severity Noted [...] Office Visit Family Medicine Montse Trivedi MD [address] [place] [address] [place] [phone] Health Maintenance Due Date Last Done Comments DTaP,Tdap,and Td Vaccines (1 - Tdap) 1960 Zoster Recombinant Vaccine (SHINGRIX) (1 of 2) 1991 Medicare Wellness Visit 2006 Osteoporosis Screening 2006 PNEUMOCOCCAL VACCINES 65+ (1 of 2 - PCV13) 2006 INFLUENZA VACCINE (#1) 2019 documented as of this encounter Results Not on filedocumented in this encounter Visit Diagnoses Diagnosis Absent pedal pulses Other symptoms involving cardiovascular system documented in this encounter Insurance Payer Benefit Plan / Subscriber ID Effective Phone Address Type Group Dates [employer] MEDICARE [id number] 2018-Prese Medicare Adv HEALTHCARE - COMPLETE nt HMO MANAGED MEDICARE documented as of this encounter
--- OUTSIDE RECORDS SUMMARY | 2019-09-14 17:51 | XMS REPORT | Summary of Care ---
:1940 Author Organization [facility] Address [address] [place] [address] Care Team Providers Name Role Phone Montse Trivedi MD Primary Care Provider Reason for Referral (Routine) Status Reason Specialty Diagnoses / Referred By Referred To Procedures Contact Contact New Request Vascular Surgery Diagnoses PAD (peripheral artery disease) Chronic deep vein thrombosis (DVT) of right popliteal vein Bilateral leg edema Decreased pedal pulses Shikha, Procedures CONSULT/REFERRAL VASCULAR SURGERY Montse Cornejo MD [address] [place] [address] [place] [address] Reason for Visit Reason Comments Referral/consult Encounter Details Date Type Department Care Team Description 04/26/2019 Telephone [facility] Family Montse Trivedi, Referral/ consult Medicine - Ari LAW [facility] [place] [address] [place] [address] [place], [place] [phone] Allergies Active Allergy Reactions Severity Noted [...] of 04/26/2019) Active Problems Problem Noted Date PAD (peripheral artery disease) 04/26/2019 Chronic deep vein thrombosis (DVT) of right popliteal vein 04/26/2019 Leukopenia 11/30/2018 Acute on chronic renal insufficiency [...] Office Visit Family Medicine Montse Trivedi MD [address] [place] [address] [place] [address] Health Maintenance Due Date Last Done Comments DTaP,Tdap,and Td Vaccines (1 - Tdap) 1960 Zoster Recombinant Vaccine (SHINGRIX) (1 of 2) 1991 Medicare Wellness Visit 2006 Osteoporosis Screening 2006 PNEUMOCOCCAL VACCINES 65+ (1 of 2 - PCV13) 2006 INFLUENZA VACCINE (#1) 2019 documented as of this encounter Results Not on filedocumented in this encounter Visit Diagnoses Diagnosis PAD (peripheral artery disease) - Primary Unspecified disorders of arteries and arterioles Chronic deep vein thrombosis (DVT) of right popliteal vein Bilateral leg edema Edema Decreased pedal pulses Other symptoms involving cardiovascular system documented in this encounter Insurance Payer Benefit Plan / Subscriber ID Effective Phone Address Type Group Dates [employer] MEDICARE [id number] 2018-Prese Medicare Adv HEALTHCARE - COMPLETE nt HMO MANAGED MEDICARE documented as of this encounter
[2019-09-14] MEDS ORDERED: TRAMADOL HCL 50 MG TAB ONE (18:56)
--- NOTE | 2019-09-14 19:31 | RAD REPORT ---
EXAM DESCRIPTION: US - Extrem Venous W Compress Quinten - 09/14/2019 7:24 pm CLINICAL HISTORY: PAIN Bilateral leg edema and swelling. COMPARISON: Extrem Venous W Compress Quinten dated 02/15/2017 TECHNIQUE: Real-time sonographic interrogation of the left and right lower extremity deep venous sys tems was performed. FINDINGS: Normal compressibility, flow augmentation, phasic flow and spontaneous flow is identified in both the left and right lower extremity deep venous systems. Small left-sided Liriano's cyst. IMPRESSION: No sonographic evidence of left or right lower extremity deep venous thrombosis.
[2019-09-14 19:52] LABS: Absolute Lymphocytes (CBC) 1.2 K/uL (0.7-4.9); Basophils % 0.7 % (0-1.3); Hematocrit 38.6 % (36.0-45.0); MPV 9.7 fL (7.6-11.3); RBC Red Blood Cell Count 4.44 M/uL (3.86-4.86)
--- NOTE | 2019-09-14 20:24 | EDPHYS ---
Physician Documentation [facility] Name: Елена Tobin Age: 78 yrs Sex: Female : 1940 Arrival Date: 09/14/2019 Time: 17:52 Bed 17 Private MD: ED Physician Regis Dior HPI: 09/14 18:55 This 78 yrs old Black Female presents to ER via Wheelchair with complaints of Leg Pain. cp 18:55 The patient presents with pain. The complaints affect the left leg, right leg. Onset: cp The symptoms/episode began/occurred 2 month(s) ago. Associated signs and symptoms: Pertinent negatives numbness, weakness. Patient reports having pain in both legs since restarting Amlodipine blood pressure medication 2 months ago. Patient reports pain feels like "spasms" and is worse at night when trying to sleep. Patient stopped Amlodipine medication 4 days ago. Historical: - Allergies: 18:14 amlodipine; iw 18:14 NSAIDS; iw - PMHx: 18:14 Arthritis; Hypertension; iw - PSHx: 18:14 Knee surgery; iw - Immunization history:: Adult Immunizations up to date. - Social history:: Smoking status: . - Ebola Screening: : Patient negative for fever greater than or equal to 101.5 degrees Fahrenheit, and additional compatible Ebola Virus Disease symptoms Patient denies exposure to infectious person Patient denies travel to an Ebola-affected area in the 21 days before illness onset No symptoms or risks identified at this time. ROS: 19:00 Constitutional: Negative for body aches, chills, fever, poor PO intake. cp 19:00 Eyes: Negative for injury, pain, redness, and discharge. cp 19:00 ENT: Negative for ear pain, sore throat. 19:00 Neck: Negative for pain with movement, pain at rest, stiffness. 19:00 Cardiovascular: Negative for chest pain, edema, palpitations. 19:00 Respiratory: Negative for cough, shortness of breath, wheezing. 19:00 Abdomen/GI: Negative for abdominal pain, nausea, vomiting, and diarrhea. 19:00 Back: Negative for pain at rest, pain with movement, radiated pain. 19:00 : Negative for urinary symptoms. 19:00 Skin: Negative for rash. 19:00 Neuro: Negative for altered mental status, headache, weakness. 19:00 All other systems are negative. Exam: 19:05 Constitutional: The patient appears in no acute distress, alert, awake, cp non-diaphoretic, non-toxic, well developed, well nourished. 19:05 Head/Face: Normocephalic, atraumatic. cp 19:05 Eyes: Periorbital structures: appear normal, Conjunctiva: normal, no exudate, no injection, Sclera: no appreciated abnormality, Lids and lashes: appear normal, bilaterally. 19:05 ENT: External ear(s): are unremarkable, Nose: is normal, Mouth: is normal, Posterior pharynx: is normal, airway is patent. 19:05 Chest/axilla: Inspection: normal, Palpation: is normal, no crepitus, no tenderness. 19:05 Cardiovascular: Rate: normal, Rhythm: regular. 19:05 Respiratory: the patient does not display signs of respiratory distress, Respirations: normal, no use of accessory muscles, labored breathing, is not present, Breath sounds: are clear throughout, no decreased breath sounds. 19:05 Abdomen/GI: Exam negative for discomfort, distension, guarding, Inspection: abdomen appears normal. 19:05 Back: pain, is absent, ROM is normal. 19:05 Musculoskeletal/extremity: Extremities: grossly normal except: noted in the left leg: pain, tenderness, noted in the right leg: pain, tenderness, ROM: full active range of motion, in the right leg and left leg, Pulses: noted to be 2+ in the right dorsalis pedis artery and left dorsalis pedis artery, Sensation intact. 19:05 Skin: cellulitis, is not appreciated, no rash present. Vital Signs: 18:15 BP 158 / 103; Pulse 86; Resp 16; Temp 98.2; Pulse Ox 98% on R/A; Weight 99.79 kg; iw Height 5 ft. 5 in. (165.10 cm); Pain 0/10; 19:30 BP 156 / 106; Pulse 82; Resp 18; Pulse Ox 100% ; wh 20:38 BP 146 / 98; Pulse 79; Resp 18; Pulse Ox 100% on R/A; wh 18:15 Body Mass Index 36.61 (99.79 kg, 165.10 cm) iw MDM: 18:21 Patient medically screened. cp 19:00 Differential diagnosis: DVT, cellulitis, muscle spasm, medication reaction. 20:23 Data reviewed: vital signs, nurses notes, lab test result(s), radiologic studies, cp ultrasound, and as a result, I will discharge patient. 20:24 Response to treatment: the patient's symptoms have markedly improved after treatment, and as a result, I will discharge patient. 20:24 Counseling: I had a detailed discussion with the patient and/or guardian regarding: the cp historical points, exam findings, and any diagnostic results supporting the discharge/admit diagnosis, lab results, radiology results, the need for outpatient follow up, a family practitioner, to return to the emergency department if symptoms worsen or persist or if there are any questions or concerns that arise at home. 09/14 18:44 Order name: CBC with Diff; Complete Time: 19:55 09/14 19:55 Interpretation: Normal except: WBC 3.1; NEUT A 1.4. 09/14 18:44 Order name: BMP; Complete Time: 20:20 09/14 20:20 Interpretation: Normal except: BUN 30; CRE 1.76; GFR 34. 09/14 18:44 Order name: US Extremity Venous W Compression Quinten; Complete Time: 19:35 09/14 19:55 Interpretation: Report reviewed. Administered Medications: 18:55 Drug: traMADol 50 mg Route: PO; bp 20:29 Follow up: Response: No adverse reaction; Pain is decreased; RASS: Alert and Calm (0) Disposition: 09/14/19 20:24 Discharged to Home. Impression: Pain in left leg, Pain in right leg. - Condition is Stable. - Discharge Instructions: Musculoskeletal Pain. - Prescriptions for Tramadol 50 mg Oral Tablet - take 1 tablet by ORAL route every 8 hours as needed; 12 tablet. - Medication Reconciliation Form, Thank You Letter, Antibiotic Education, Prescription Opioid Use form. - Follow up: Private Physician; When: 1 - 2 days; Reason: Recheck today's complaints. - Problem is an ongoing problem. - Symptoms have improved. Addendum: 09/16/2019 19:47 Co-signature as Attending Physician, Regis Dior MD. r n Signatures: Dispatcher [employer] Keyla Islas RN RN Regis Dior MD MD rn Page, Corey, PA PA Ajay Randall wh Danna, Dean, RN RN bp Corrections: (The following items were deleted from the chart) 09/14 19:55 19:55 Normal except: WBC 3.1. cp cp 20:38 20:24 09/14/2019 20:24 Discharged to Home. Impression: Pain in left leg; Pain in right wh leg. Condition is Stable. Forms are Medication Reconciliation Form, Thank You Letter, Antibiotic Education, Prescription Opioid Use. Follow up: Private Physician; When: 1 - 2 days; Reason: Recheck today's complaints. Problem is an ongoing problem. Symptoms have improved. cp
--- NOTE | 2019-09-14 20:24 | ER ---
Nurse's Notes [facility] Name: Елена Tobin Age: 78 yrs Sex: Female : 1940 Arrival Date: 09/14/2019 Time: 17:52 Bed 17 Private MD: Diagnosis: Pain in left leg;Pain in right leg Presentation: 09/14 18:12 Presenting complaint: Patient states: BP has been running high, can't take her iw amlodipine because it's giving her legs spasms , was told by Dr. Bhatti to come to ER if her pain continued , stopped taking her BP medicine four days ago. Transition of care: patient was not received from another setting of care. Onset of symptoms was September 11, 2019. Risk Assessment: Do you want to hurt yourself or someone else? Patient reports no desire to harm self or others. Initial Sepsis Screen: Does the patient meet any 2 criteria? No. Patient's initial sepsis screen is negative. Does the patient have a suspected source of infection? No. Patient's initial sepsis screen is negative. Care prior to arrival: None. 18:12 Method Of Arrival: Wheelchair iw 18:12 Acuity: BRIGIDA 3 iw Triage Assessment: 18:15 General: Appears in no apparent distress. comfortable, Behavior is cooperative, bp appropriate for age, anxious. Pain: Complains of pain in right leg and left leg. EENT: No deficits noted. Neuro: No deficits noted. Cardiovascular: No deficits noted. Respiratory: No deficits noted. GI: No signs and/or symptoms were reported involving the gastrointestinal system. : No signs and/or symptoms were reported regarding the genitourinary system. Derm: No deficits noted. Musculoskeletal: Circulation, motion, and sensation intact. Range of motion: intact in all extremities, Swelling present in right leg and left leg. Historical: - Allergies: 18:14 amlodipine; iw 18:14 NSAIDS; iw - PMHx: 18:14 Arthritis; Hypertension; iw - PSHx: 18:14 Knee surgery; iw - Immunization history:: Adult Immunizations up to date. - Social history:: Smoking status: . - Ebola Screening: : Patient negative for fever greater than or equal to 101.5 degrees Fahrenheit, and additional compatible Ebola Virus Disease symptoms Patient denies exposure to infectious person Patient denies travel to an Ebola-affected area in the 21 days before illness onset No symptoms or risks identified at this time. Screenin:15 Abuse screen: Denies threats or abuse. Denies injuries from another. Nutritional bp screening: No deficits noted. Tuberculosis screening: No symptoms or risk factors identified. Fall Risk None identified. Assessment: 18:15 General: SEE TRIAGE NOTE. Pain: Complains of pain in right leg and left leg. bp 18:45 Reassessment: U/S AT B/S. bp 19:30 Reassessment: Patient appears in no apparent distress at this time. Patient and/or family updated on plan of care and expected duration. Pain level reassessed. Patient is alert, oriented x 3, equal unlabored respirations, skin warm/dry/pink. 20:38 Reassessment: Patient appears in no apparent distress at this time. No changes from previously documented assessment. Patient and/or family updated on plan of care and expected duration. Pain level reassessed. Patient is alert, oriented x 3, equal unlabored respirations, skin warm/dry/pink. Patient states feeling better. Patient states symptoms have improved. Vital Signs: 18:15 BP 158 / 103; Pulse 86; Resp 16; Temp 98.2; Pulse Ox 98% on R/A; Weight 99.79 kg; iw Height 5 ft. 5 in. (165.10 cm); Pain 0/10; 19:30 BP 156 / 106; Pulse 82; Resp 18; Pulse Ox 100% ; wh 20:38 BP 146 / 98; Pulse 79; Resp 18; Pulse Ox 100% on R/A; wh 18:15 Body Mass Index 36.61 (99.79 kg, 165.10 cm) ED Course: 17:52 Patient arrived in ED. mr 18:13 Triage completed. iw 18:15 Arm band placed on. iw 18:15 Patient has correct armband on for positive identification. Bed in low position. Call bp light in reach. Side rails up X2. Adult w/ patient. 18:18 Dean Clay, ALEIDA is Primary Nurse. bp 18:18 Hakeem Flores PA is PHCP. cp 18:18 Regis Dior MD is Attending Physician. cp 19:25 US Extremity Venous W Compression Quinten In Process Unspecified. EDMS 19:30 Inserted saline lock: 22 gauge in left antecubital area, using aseptic technique. Blood wh collected. 20:37 No provider procedures requiring assistance completed. IV discontinued, intact, wh bleeding controlled, No redness/swelling at site. Administered Medications: 18:55 Drug: traMADol 50 mg Route: PO; bp 20:29 Follow up: Response: No adverse reaction; Pain is decreased; RASS: Alert and Calm (0) Outcome: 20:24 Discharge ordered by MD. aissatou 20:37 Discharged to home via wheelchair, with family. 20:37 Condition: stable 20:37 Discharge instructions given to patient, family, Instructed on discharge instructions, follow up and referral plans. no drinking with medication, no driving heavy equipment, medication usage, POC Demonstrated understanding of instructions, follow-up care, medications, POC Prescriptions given X 1. 20:38 Patient left the ED. Signatures: Dispatcher [employer] YANIHI Lori Mott Irene, RN RN Hakeem Mc PA PA cp Habalo, Winsy Dean Clay RN RN bp
[2019-09-14 21:11] VITALS: TEMP 98.2
[2019-09-14 21:12] VITALS: O2SAT 100
[2019-09-14 21:13] VITALS: BP 146/98
== END 2019-09-14 20:38 | disposition home or self-care (01) ==
LOC: ER 17:48
DX: M79.605 Pain in left leg (principal); M79.604 Pain in right leg; I10 Essential (primary) hypertension; Z88.6 Allergy status to analgesic agent; Z88.8 Allergy status to other drugs, medicaments and biological substances
CPT/HCPCS: 36415; 80048; 85025; 93970; 99284

== ENCOUNTER 2024-02-10 10:13 | Emergency (ER) | payer OTHER ==
[2024-02-10] MEDS ORDERED: FOLIC ACID 5 MG/ML VIAL ONE (11:15)
[2024-02-10] MEDS ORDERED: NA CHLORIDE 0.9% 500 ML ONE (11:15)
[2024-02-10 12:00] LABS: Absolute Eosinophils 0.2 K/uL (0-0.5); Absolute Lymphocytes (CBC) 1.5 K/uL (0.7-4.9); Absolute Monocytes 0.5 K/uL (0.1-1.3); Absolute Neutrophil 3.2 K/uL (1.8-8.0); Basophils % 0.8 % (0-1.3); Eosinophils % 4.3 % (0-4.4); Hematocrit 29.5 % (36.0-45.0); Hemoglobin 9.5 g/dL (12.0-15.0); Lymphocytes % 27.4 % (15.3-44.8); MCHC 32.3 g/dL (32.0-36.0); MCV 86.6 fL (80-100); MPV 9.4 fL (7.6-11.3); Monocytes % 9.9 % (3.3-12.3); Neutrophils % 57.6 % (41.7-73.7); Platelets 288 thou/uL (152-406); RBC Red Blood Cell Count 3.41 M/uL (3.86-4.86); Red Cell Distribution Width 14.3 % (12.1-15.2)
--- NOTE | 2024-02-10 12:25 | RAD REPORT ---
EXAM DESCRIPTION: US - Extrem Venous W Compress Quinten - 02/10/2024 11:38 am CLINICAL HISTORY: Pain, numbness, tingling COMPARISON: 09/14/2019. TECHNIQUE: Real-time sonographic evaluation of the bilateral lower extremity deep venous systems was performed. FINDINGS: Normal compressibility, flow augmentation, phasic flow and spontaneous flow is identified in both the left and right lower extremity deep venous systems. No intraluminal filling defects seen. IMPRESSION: No DVT in either lower extremity.
--- NOTE | 2024-02-10 12:33 | EDPHYS ---
Physician Documentation [facility] Name: Елена Tobin Age: 83 yrs Sex: Female : 1940 Arrival Date: 02/10/2024 Time: 10:13 Bed 15 Private MD: YANI Physician Hakeem Gaston HPI: 02/09 11:03 This 83 yrs old Black Female presents to ER via Wheelchair with complaints of Leg Pain. roma 11:03 The patient presents with pain, LEFT LOWER LEG NUMBNESS. The complaints affect the roma lateral aspect of left calf, left calf, medial aspect of left calf and left cedeno. Context: The problem was sustained at an unknown site, resulted from an unknown cause, OVER FAVORING OF LEFT LEG, the patient can fully bear weight. Modifying factors: The symptoms are alleviated by nothing. the symptoms are aggravated by nothing. Associated signs and symptoms: Pertinent positives: numbness, of the lateral aspect of left calf, left lateral ankle, left calf, left Achilles, medial aspect of left calf, left medial ankle and left cedeno. Historical: - Allergies: 10:31 NSAIDS; nj1 - PMHx: 10:31 Hypertension; Arthritis; nj1 - PSHx: 10:31 Operative procedure on knee; nj1 - Immunization history:: Client reports receiving the 2nd dose of the Covid vaccine. - Infectious Disease History:: Denies. - Social history:: Smoking status: Patient denies any tobacco usage or history of. - Family history:: not pertinent. ROS: 11:03 Constitutional: Negative for fever, chills, and weight loss, Eyes: Negative for injury, roma pain, redness, and discharge, ENT: Negative for injury, pain, and discharge, Neck: Negative for injury, pain, and swelling, Cardiovascular: Negative for chest pain, palpitations, and edema, Respiratory: Negative for shortness of breath, cough, wheezing, and pleuritic chest pain, Abdomen/GI: Negative for abdominal pain, nausea, vomiting, diarrhea, and constipation, Back: Negative for injury and pain, : Negative for injury, bleeding, discharge, and swelling, Skin: Negative for injury, rash, and discoloration, Neuro: Negative for headache, weakness, numbness, tingling, and seizure, Psych: Negative for depression, anxiety, suicide ideation, homicidal ideation, and hallucinations, Allergy/Immunology: Negative for hives, rash, and allergies, Endocrine: Negative for neck swelling, polydipsia, polyuria, polyphagia, and marked weight changes, Hematologic/Lymphatic: Negative for swollen nodes, abnormal bleeding, and unusual bruising, 11:03 MS/extremity: Positive for tingling, of the lateral aspect of left calf, lateral aspect of left foot, left calf, medial aspect of left calf, medial aspect of left foot, left cedeno and dorsum of left foot, Exam: 11:03 Constitutional: This is a well developed, well nourished patient who is awake, alert, roma and in no acute distress. Head/Face: Normocephalic, atraumatic. Eyes: Pupils equal round and reactive to light, extra-ocular motions intact. Lids and lashes normal. Conjunctiva and sclera are non-icteric and not injected. Cornea within normal limits. Periorbital areas with no swelling, redness, or edema. ENT: Nares patent. No nasal discharge, no septal abnormalities noted. Tympanic membranes are normal and external auditory canals are clear. Oropharynx with no redness, swelling, or masses, exudates, or evidence of obstruction, uvula midline. Mucous membranes moist. Neck: Trachea midline, no thyromegaly or masses palpated, and no cervical lymphadenopathy. Supple, full range of motion without nuchal rigidity, or vertebral point tenderness. No Meningismus. Chest/axilla: Normal chest wall appearance and motion. Nontender with no deformity. No lesions are appreciated. Cardiovascular: Regular rate and rhythm with a normal S1 and S2. No gallops, murmurs, or rubs. Normal PMI, no JVD. No pulse deficits. Respiratory: Lungs have equal breath sounds bilaterally, clear to auscultation and percussion. No rales, rhonchi or wheezes noted. No increased work of breathing, no retractions or nasal flaring. Abdomen/GI: Soft, non-tender, with normal bowel sounds. No distension or tympany. No guarding or rebound. No evidence of tenderness throughout. Back: No spinal tenderness. No costovertebral tenderness. Full range of motion. Skin: Warm, dry with normal turgor. Normal color with no rashes, no lesions, and no evidence of cellulitis. MS/ Extremity: Pulses equal, no cyanosis. Neurovascular intact. Full, normal range of motion. Neuro: Awake and alert, GCS 15, oriented to person, place, time, and situation. Cranial nerves II-XII grossly intact. Motor strength 5/5 in all extremities. Sensory grossly intact. Cerebellar exam normal. Normal gait. Psych: Awake, alert, with orientation to person, place and time. Behavior, mood, and affect are within normal limits. Vital Signs: 10:27 BP 160 / 94; Pulse 82; Resp 16; Temp 98.4(O); Pulse Ox 100% on R/A; Weight 99.79 kg; nj1 Height 5 ft. 5 in. ; 12:34 BP 164 / 92; Pulse 74; Resp 18; Pulse Ox 100% on R/A; mb9 10:27 Body Mass Index 36.61 (99.79 kg, 165.1 cm) nj1 NIH Stroke Scale Scores: 11:03 NIHSS Score: 0 roma MDM: 10:24 Patient medically screened. roma 11:11 Differential diagnosis: contusion, tendonitis. Data reviewed: vital signs, nurses roma notes, lab test result(s), radiologic studies, ultrasound. Consideration of Admission/Observation Escalation of care including admission/observation considered. I considered the following discharge prescriptions or medication management in the emergency department Medications were administered in the Emergency Department. See MAR. Independent interpretation of the following test(s) in the Emergency Department Radiology Department Ultrasound: My interpretation is BILATERAL DVT NEG. Care significantly affected by the following chronic conditions: Hypertension, OA, RECENT RIGHT KNEE REPLACE , REVISION. 02/09 11:02 Order name: CBC with Diff; Complete Time: 12:32 [facility] [place] 02/09 11:02 Order name: US Extremity Venous W Compression Quinten; Complete Time: 12:32 [facility] [place] 02/09 12:04 Order name: Labs - recollect needed: recollect green top please; Complete Time: 12:05 em1 Administered Medications: 11:53 Not Given (Patient Refused): folic acid1 mg IVPB once mb9 11:53 Not Given (Patient Refused): ns 0.9% 500 ml IV at bolus once mb9 Disposition Summary: 02/10/24 12:32 Discharge Ordered Notes: Location: Home roma Problem: new roma Symptoms: have improved roma Condition: Stable roma Diagnosis - Pain in left lower leg - PERIPHERAL NEUROPATHY roma - Anemia, unspecified roma Followup: roma - With: Private Physician - When: 2 - 3 days - Reason: Recheck today's complaints, Continuance of care, Re-evaluation by your physician Discharge Instructions: - Discharge Summary Sheet roma - Anemia roma - Musculoskeletal Pain roma - How to Use Cold Therapy, [id number] roma - Peripheral Neuropathy roma Forms: - Medication Reconciliation Form roma - Antibiotic Education roma - Prescription Opioid Use rmoa - Patient Portal Instructions roma - Leadership Thank You Letter roma Prescriptions: - Ferrous Sulfate 325 mg (65 mg Iron) Oral tablet - take 1 tablet ORAL route every 8 hours; 60 tablet; Refills: 0, Product roma Selection Permitted NIH Stroke Scale - NIH Stroke Score Date: 02/10/2024 Time: 11:03 Total Score = 0 10. Dysarthria (speech clarity - read or repeat words) - 0(Normal) 11. Extinction and Inattention (visual/tactile/auditory/spatial/personal) - 0(No abnormality) 1a. Level of Consciousness (LOC) - 0(Alert) 1b. Level of Consciousness (LOC) (Month \T\ Age) - 0(Both) 1c. LOC Commands (Open \T\ Closes Eyes/Bass String Winder) - 0(Both) 2. Best Gaze (Lateral Gaze Paresis) - 0(Normal) 3. Visual Field Loss - 0(No visual loss) 4. Facial Palsy - 0(Normal) 5a. Left Arm: Motor (10-second hold) - 0(No drift) 5b. Right Arm: Motor (10-second hold) - 0(No drift) 6a. Left Leg: Motor (5-second hold - always test supine) - 0(No drift) 6b. Right Leg: Motor (5-second hold - always test supine) - 0(No drift) 7. Limb Ataxia (finger/nose \T\ heel/cedeno - test with eyes open) - 0(Absent) 8. Sensory Loss (pinprick arms/legs/face) - 0(Normal) 9. Best Language: Aphasia (description/naming/reading) - 0(No aphasia) Initials: roma Signatures: Dispatcher [employer] Hakeem Parry MD MD cha Martinez, Yonis em1 Rosalie Mijares RN RN nj1 Lori Lawrence RN mb9 Corrections: (The following items were deleted from the chart) 10:32 10:31 Allergies: amlodipine; melodie nj1
--- NOTE | 2024-02-10 12:33 | ER ---
Nurse's Notes [facility] Name: Елена Tobin Age: 83 yrs Sex: Female : 1940 Arrival Date: 02/10/2024 Time: 10:13 Bed 15 Private MD: Diagnosis: Pain in left lower leg-PERIPHERAL NEUROPATHY;Anemia, unspecified Presentation: 02/09 10:27 Chief complaint: Patient states: Had right knee revision surgery January 19, while in the [facility] hospital found out to have a blood clot on right leg, given medication while in the hospital, sent home the with rx for aspirin. 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 Coronavirus screen: Vaccine status: Patient reports receiving the 2nd dose of the covid vaccine. Ebola Screen: Patient denies travel to an Ebola-affected area in the 21 days before illness onset. Initial Sepsis Screen: Does the patient meet any 2 criteria? No. Patient's initial sepsis screen is negative. Does the patient have a suspected source of infection? No. Patient's initial sepsis screen is negative. Risk Assessment: Do you want to hurt yourself or someone else? Patient reports no desire to harm self or others. Onset of symptoms was February 09, 2024. 10:27 Method Of Arrival: Wheelchair [facility] 10:27 Acuity: BRIGIDA 3 [facility] Triage Assessment: 10:32 General: Appears in no apparent distress. comfortable, Behavior is calm, cooperative, [facility] appropriate for age. Pain: Denies pain. Neuro: Level of Consciousness is awake, alert, obeys commands, Oriented to person, place, time, situation, Moves all extremities. Speech is normal, Facial symmetry appears normal. Cardiovascular: Patient's skin is warm and dry. Respiratory: Airway is patent Respiratory effort is even, unlabored. Historical: - Allergies: 10:31 NSAIDS; nj1 - PMHx: 10:31 Hypertension; Arthritis; [facility] - PSHx: 10:31 Operative procedure on knee; [facility] - Immunization history:: Client reports receiving the 2nd dose of the Covid vaccine. - Infectious Disease History:: Denies. - Social history:: Smoking status: Patient denies any tobacco usage or history of. - Family history:: not pertinent. Screenin:57 [facility] ED Fall Risk Assessment (Adult) History of falling in the last 3 months, mb9 including since admission No falls in past 3 months (0 pts) Confusion or Disorientation No (0 pts) Intoxicated or Sedated No (0 pts) Impaired Gait Yes (1 pt) Mobility Assist Device Used Yes (1 pt) Altered Elimination No (0 pt) Score/Fall Risk Level 3 or more points = High Risk Oriented to surroundings, Maintained a safe environment, Educated pt \T\ family on fall prevention, incl call for assistance when getting out of bed. Abuse screen: Denies threats or abuse. Nutritional screening: No deficits noted. Tuberculosis screening: No symptoms or risk factors identified. Assessment: 11:55 General: Appears uncomfortable, Behavior is uncooperative. Pain: Complains of pain in mb9 left leg Pain currently is 4 out of 10 on a pain scale. Quality of pain is described as numb, Pain began 2-3 days ago. Is intermittent. Neuro: Franco Agitation-Sedation Scale (RASS): 0 - Alert and Calm Level of Consciousness is awake, alert, obeys commands, Oriented to person, place, time, situation, Appropriate for age Reports numbness in left leg. Cardiovascular: Patient's skin is warm and dry. Respiratory: Airway is patent Respiratory effort is even, unlabored, Respiratory pattern is regular, symmetrical, Breath sounds are clear bilaterally. GI: No signs and/or symptoms were reported involving the gastrointestinal system. : No signs and/or symptoms were reported regarding the genitourinary system. EENT: No signs and/or symptoms were reported regarding the EENT system. Derm: Skin is pink, warm \T\ dry. Musculoskeletal: Range of motion: intact in all extremities. 11:56 Reassessment: pt refusing blood work and IV. ERP notified. mb9 12:49 Neuro: Level of Consciousness is awake, alert, obeys commands, Oriented to person, aa5 place, time, situation. Respiratory: Airway is patent Respiratory effort is even, unlabored, Respiratory pattern is regular, symmetrical. Derm: Skin is dry, Skin is normal, Skin temperature is warm. Vital Signs: 10:27 BP 160 / 94; Pulse 82; Resp 16; Temp 98.4(O); Pulse Ox 100% on R/A; Weight 99.79 kg; nj1 Height 5 ft. 5 in. ; 12:34 BP 164 / 92; Pulse 74; Resp 18; Pulse Ox 100% on R/A; mb9 10:27 Body Mass Index 36.61 (99.79 kg, 165.1 cm) nj1 NIH Stroke Scale Scores: 11:03 NIHSS Score: 0 [facility] ED Course: 10:16 Patient arrived in ED. rg4 10:24 Hakeem Gaston MD is Attending Physician. roma 10:31 Triage completed. nj1 10:32 Arm band placed on left wrist. nj1 11:39 US Extremity Venous W Compression Quinten In Process Unspecified. EDMS 11:52 Lori Lwarence, RN is Primary Nurse. mb9 11:53 Initial lab(s) drawn, by me, sent to lab. Missed attempt(s): 24 gauge in right forearm. mb9 Bleeding controlled, band aid applied, catheter tip intact. 11:57 Bed in low position. Call light in reach. Side rails up X 1. Adult w/ patient. Provided mb9 Education on: press call light if needing anything. Client placed on continuous cardiac and pulse oximetry monitoring. NIBP monitoring applied. 11:57 No provider procedures requiring assistance completed. mb9 12:49 Patient did not have IV access during this emergency room visit. aa5 Administered Medications: 11:53 Not Given (Patient Refused): folic acid1 mg IVPB once mb9 11:53 Not Given (Patient Refused): ns 0.9% 500 ml IV at bolus once mb9 Medication: 11:57 VIS not applicable for this client. mb9 Outcome: 12:32 Discharge ordered by . [facility] 12:49 Discharged to home via wheelchair, with family, aa5 12:49 Condition: stable 12:49 Discharge instructions given to patient, family, Instructed on discharge instructions, follow up and referral plans. medication usage, Demonstrated understanding of instructions, follow-up care, medications, Prescriptions given X 1, 12:50 Patient left the ED. aa5 NIH Stroke Scale - NIH Stroke Score Date: 02/10/2024 Time: 11:03 Total Score = 0 10. Dysarthria (speech clarity - read or repeat words) - 0(Normal) 11. Extinction and Inattention (visual/tactile/auditory/spatial/personal) - 0(No abnormality) 1a. Level of Consciousness (LOC) - 0(Alert) 1b. Level of Consciousness (LOC) (Month \T\ Age) - 0(Both) 1c. LOC Commands (Open \T\ Closes Eyes/Lead Ramp Service Man) - 0(Both) 2. Best Gaze (Lateral Gaze Paresis) - 0(Normal) 3. Visual Field Loss - 0(No visual loss) 4. Facial Palsy - 0(Normal) 5a. Left Arm: Motor (10-second hold) - 0(No drift) 5b. Right Arm: Motor (10-second hold) - 0(No drift) 6a. Left Leg: Motor (5-second hold - always test supine) - 0(No drift) 6b. Right Leg: Motor (5-second hold - always test supine) - 0(No drift) 7. Limb Ataxia (finger/nose \T\ heel/cedeno - test with eyes open) - 0(Absent) 8. Sensory Loss (pinprick arms/legs/face) - 0(Normal) 9. Best Language: Aphasia (description/naming/reading) - 0(No aphasia) Initials: roma Signatures: Dispatcher [employer] EDHakeem Salinas MD MD cha Calderon, Audri, RN RN [email or web address] Naomy [email or web address] Lori Lawrence RN RN mb9 Rosalie Mijares RN RN nj1 Corrections: (The following items were deleted from the chart) 10:32 10:31 Allergies: amlodipine; nj1 nj1
[2024-02-10 13:03] VITALS: BP 164/92; TEMP 98.4; O2SAT 100
== END 2024-02-10 12:50 | disposition home or self-care (01) ==
LOC: ER 10:13
DX: G62.9 Polyneuropathy, unspecified (principal); D64.9 Anemia, unspecified
CPT/HCPCS: 85025; 36415; 93970; 99284; J7040